=== PATIENT | male | born 1975 | race Caucasian/White ===

== ENCOUNTER 2021-10-14 14:10 | Emergency (ER) | payer SELFPAY ==
[~2021-10-14] VITALS: Ht 172.7 cm; Wt 68.0 kg
--- NOTE | 2021-10-14 14:29 | NUR ---
PT IS IN ROOM #2B. DR HILL EVALUATED THE PT.
--- NOTE | 2021-10-14 14:32 | NUR ---
PT REFUSED BLOOD TEST . DR HILL NOTIFIED.
--- NOTE | 2021-10-14 15:06 | NUR ---
PT WAS EVALUATED BY DR HILL. PT WAS D/C'd TO HOME. D/C INSTRUCTIONS GIVEN TO THE PT BY DR HILL.
[2021-10-14 15:07] VITALS: BP 136/89
== END 2021-10-14 15:08 | disposition home or self-care (01) ==
LOC: ER 14:10
DX: M79.672 Pain in left foot (principal); M79.671 Pain in right foot; S50.812A Abrasion of left forearm, initial encounter; S50.811A Abrasion of right forearm, initial encounter; S60.512A Abrasion of left hand, initial encounter; S60.511A Abrasion of right hand, initial encounter; X58.XXXA Exposure to other specified factors, initial encounter; Y92.89 Other specified places as the place of occurrence of the external cause; Z59.02 Unsheltered homelessness
CPT/HCPCS: A4663